=== PATIENT | male | born 2000 | race Caucasian/White ===

== ENCOUNTER 2019-08-02 11:50 | Emergency (ER) | payer BC ==
--- NOTE | 2019-08-02 14:03 | ED ---
Skin Complaint - HPI Summary HPI Summary: Patient presents with lesion on left side of his cheondoism for the past couple of weeks. He reports this started as a small firm palpable lesion that was nontender and without redness or swelling. He poked this area with a needle in an effort to drain it and reports some purulent material was expressed. Since then he has had a swollen, red and tender wound. No active drainage although when he squeezes it sometimes is able to get something out. Denies fever, chills, pain with ocular movements, trismus, lymph node swelling/tenderness/ pain and neck. He is eating and drinking without difficulty. He tried ice which helped swelling somewhat. Has not tried warm compresses. Denies known history of MRSA or staph. Tetanus up-to-date. Mom is very concerned about appearance and she reports they're going to dinner this evening. Patient however does not want any manipulation if not needed. - History of Current Complaint Chief Complaint: EDRashSkinAbscess Time Seen by Provider: 08/02/19 12:42 Stated Complaint: PIMPLIE ON SIDE OF FACE Hx Obtained From: Patient, Family/[employer] Lady - mom, dad Pain Intensity: 2 - Allergy/Home Medications Allergies/Adverse Reactions: Allergies Allergy/AdvReac Type Severity Reaction Status Date / Time No Known Allergies Allergy Verified 08/02/19 12:02 PMH/Surg Hx/FS Hx/Imm Hx Previously Healthy: Yes Endocrine/Hematology History: Denies: Hx Anticoagulant Therapy, Autoimmune Disease - Immunization History Immunizations Up to Date: Yes Infectious Disease History: No Infectious Disease History: Denies: Hx of Known/Suspected MRSA, Traveled Outside the in Last 30 Days - Social History Occupation: Student - [employer] Lives: Dormitory/Roommates Alcohol Use: None Hx Substance Use: No Substance Use Type: Reports: None Hx Tobacco Use: No Smoking Status (MU): Never Smoked Tobacco Review of Systems Constitutional: Negative Eyes: Negative ENT: Negative Gastrointestinal: Negative Positive: no symptoms reported Musculoskeletal: Negative Skin: Other - wound Neurological: Negative Psychological: Other - concerned All Other Systems Reviewed And Are Negative: Yes Physical Exam Triage Information Reviewed: Yes Vital Signs On Initial Exam: Initial Vitals Temp Pulse Resp BP Pulse Ox 97.7 F 82 16 143/63 99 08/02/19 11:59 08/02/19 11:59 08/02/19 11:59 08/02/19 11:59 08/02/19 11:59 Vital Signs Reviewed: Yes Appearance: Positive: Well-Appearing, No Pain Distress, Well-Nourished Skin: Positive: Warm, Skin Color Reflects Adequate Perfusion, Dry, Other - palpable 10mm area over Lt cheondoism of boggy erythema w/ overlying scab where pt punctured wound - small pore at the posterior aspect- well defined borders - NTTP, no drainage Head/Face: Positive: Normal Head/Face Inspection Eyes: Positive: Normal, EOMI, Conjunctiva Clear. Negative: Conjunctiva Inflammed, Discharge ENT: Positive: Hearing grossly normal, Pharynx normal - mucosa moist. Negative : Trismus Neck: Positive: Supple, Nontender, No Lymphadenopathy Respiratory/Lung Sounds: Positive: Breath Sounds Present. Negative: Stridor Cardiovascular: Positive: RRR Musculoskeletal: Positive: Normal, Strength/ROM Intact Neurological: Positive: Normal, Alert, Oriented to Person Place, Time, CN Intact II-III Psychiatric: Positive: Anxious - but consolable - Moody Coma Scale Best Eye Response: 4 - Spontaneous Best Motor Response: 6 - Obeys Commands Best Verbal Response: 5 - Oriented Coma Scale Total: 15 Procedures - Sedation Patient Received Moderate/Deep Sedation with Procedure: No Diagnostics - Vital Signs Vital Signs Temp Pulse Resp BP Pulse Ox 08/02/19 11:59 97.7 F 82 16 143/63 99 - Laboratory Lab Statement: Any lab studies that have been ordered have been reviewed, and results considered in the medical decision making process. Course/Dx - Course Course Of Treatment: Abscess vs. inflammed epidermal cyst. Offered needle aspiration for decompression however explained if it is a cyst, may not get much material out through this route. Also recommend antibiotics, warm compresses to encourage drainage, ibuprofen for pain and swelling. Patient chose the latter without invasive intervention today but will follow-up with plastics as needed. Education about of bleeding further manipulation in an effort to allow this to heal and not spread infection. Review danger signs and symptoms of when to return to the emergency room. Patient and parents voice understanding and agree with plan. - Diagnoses Provider Diagnoses: Facial infection Discharge ED - Sign-Out/Discharge Documenting (check all that apply): Patient Departure - Discharge Plan Condition: Stable Disposition: HOME Prescriptions: DOXYcycline CAP(*) [DOXYcycline 100MG CAP(*)] 100 mg PO BID #20 cap Patient Education Materials: Abscess (ED) Referrals: Brian Strickland MD [Medical Doctor] - Additional Instructions: Keep area clean by gently washing with soap and water, rinse well and pat dry Apply warm compresses Take antibiotics as directed He may also take ibuprofen 600 mg every 6 hours or 800 mg every 8 hours as needed for pain and swelling If redness pain and swelling do not decrease with medications, he may schedule a consultation with plastics - see contact information included here If in the meantime you develop fever, chills, pain with eye movement, pain with jaw movement, swelling or stiffness of the neck, nausea vomiting, etc., return to the emergency department. - Billing Disposition and Condition Condition: STABLE Disposition: Home
[2019-08-02 14:20] VITALS: BP 131/63
== END 2019-08-02 14:20 | disposition home or self-care (01) ==
LOC: ED 11:50
DX: L08.9 Local infection of the skin and subcutaneous tissue, unspecified (principal)
CPT/HCPCS: 99282